=== PATIENT | male | born 1935 | race Caucasian/White ===

== ENCOUNTER → 2022-02-06 | Outpatient (CLI) | payer MEDICARE, OTHER ==
[~2022-02-06] MED LIST: AMIO200T49 PO; ASPI81TA26 PO; ATOR40TA75 PO; CLOP75TA2 PO; FERR325T81 PO; JANU100T PO; LOSA25TA13 PO; METF10004 PO; METO25TA4 PO; OMEP40CA4 PO
== END ==
LOC: M LABSMTC 11:26
PROVIDERS: ATTEND Anesthesiology
DX: Z01.812 Encounter for preprocedural laboratory examination (principal); Z11.52 Encounter for screening for COVID-19

== ENCOUNTER 2022-02-09 10:11 | Day surgery (SDC) | payer MEDICARE, OTHER ==
[~2022-02-09] VITALS: Ht 157.5 cm; Wt 84.8 kg
[~2022-02-09 10:11] MED LIST changes: +LIDOCAINE 3.5 % 1ML OPHTH TOPICAL GEL OU ONE; +MIDAZOLAM INJ 2MG/2ML VIAL (J2250 PER 1MG) As Ordered ONE; +TOBRADEX OPHTH OINT 3.5 GM As Ordered ONE; +fentaNYL 100 MCG/2 ML INJECTION As Ordered ONE
[2022-02-09] MEDS ORDERED: LIDOCAINE 4% INJ 5ML AMP As Ordered ONE ×2 (11:43→13:19)
[2022-02-09] MEDS ORDERED: LIDOCAINE 2% 100MG/5ML SDV (FOR ANES.) As Ordered ONE (11:45)
[2022-02-09] MEDS ORDERED: LIDOCAINE PRES-FREE 2% 10ML AMP As Ordered ONE (11:49)
[2022-02-09] MEDS ORDERED: propofoL 200 MG/20 ML VIAL As Ordered ONE (11:53)
[2022-02-09 14:15] VITALS: BP 178/84
[2022-02-09] MEDS ORDERED: ACETAMINOPHEN 325 MG TAB PO PRN (14:20)
[2022-02-09] MEDS ORDERED: acetaZOLAMIDE 500MG ER CAP PO ONE (14:20)
[2022-02-09] MEDS ORDERED: ONDANSETRON 4MG TAB PO PRN (14:20)
== END 2022-02-09 14:40 | disposition home or self-care (01) ==
LOC: M SDC 10:11
PROVIDERS: ATTEND Ophthalmology
DX: H18.20 Unspecified corneal edema (principal); I10 Essential (primary) hypertension; E78.5 Hyperlipidemia, unspecified; E11.9 Type 2 diabetes mellitus without complications; Z87.891 Personal history of nicotine dependence; Z79.51 Long term (current) use of inhaled steroids; Z88.0 Allergy status to penicillin; Z88.8 Allergy status to other drugs, medicaments and biological substances; Z79.02 Long term (current) use of antithrombotics/antiplatelets; Z79.84 Long term (current) use of oral hypoglycemic drugs
CPT/HCPCS: 65756; 65757; 87070; 87075; 87076; 87102; 87205; 88300; J2250; J3010; V2785